=== PATIENT | male | born 1955 | race Caucasian/White ===

== ENCOUNTER 2016-12-14 08:51 | Inpatient (IN) | payer BC ==
[2016-12-14] VITALS (13 sets, daily range): BP systolic 94–160; BP diastolic 52–80; PULSE 65–120; RESP 15–24; TEMP 98–98.1; O2SAT 97–100
[~2016-12-14] VITALS: Ht 177.8 cm; Wt 99.8 kg
[2016-12-14] MEDS ORDERED: SODIUM CHLOR 0.9% 1000 ML INJ 1,000 ML IV ONE ×3 (09:00→09:30)
[2016-12-14] MEDS ORDERED: SODIUM CHLORIDE 0.9% FLUSH 5 ML FLUSH IVF PRN (09:00)
[2016-12-14 09:01] LABS: MEAN CORPUSCULAR HGB CONC 29.5 % (32.0-36.0)
--- NOTE | 2016-12-14 09:14 | PD ---
HPI Chief Complaint: Diabetic Time Seen by Provider: 08:57 Travel History International Travel<30 days: No Contact w/Intl Traveler<30days: No Traveled to known affect area: No History of Present Illness HPI 61-year-old male with history of insulin dependent diabetes, brought in by ambulance for evaluation of nausea, vomiting, generalized weakness. The patient has been vomiting for the last 24 hours. Occasionally he notices some blood in his emesis. No diarrhea. No abdominal pain. No chest pain or dyspnea. No fevers or chills. He states that he has been compliant with his insulin. PFSH Past Medical History Hx Anticoagulant Therapy: Yes (81 mg asa) Diabetes: Yes Patient Takes Glucophage: No Diminished Hearing: Yes Hypertension: Yes Tetanus Vaccination: > 5 Years Influenza Vaccination: Yes ?: Not Past Surgical History Cholecystectomy: Yes Other Surgery: Yes (PERACARDECTOMY, INSULIN PUMP PLACEMENT) Social History Alcohol Use: Yes (daily- 1 to 2 glasses of berr/wine) Tobacco Use: No Substance Use: No Allergies-Medications (Allergen,Severity, Reaction): Coded Allergies: No Known Allergies (Unverified , 12/14/16) Review of Systems Except as stated in HPI: all other systems reviewed are Neg Physical Exam Narrative GENERAL: Well-developed, well-nourished, awake, alert, no acute distress. SKIN: Warm and dry. HEAD: Atraumatic. Normocephalic. EYES: Pupils equal and round. No scleral icterus. No injection or drainage. ENT: Mucous membranes pink and dry. NECK: Trachea midline. No JVD. No nuchal rigidity. CARDIOVASCULAR: Regular rate and rhythm. RESPIRATORY: No accessory muscle use. Clear to auscultation. Breath sounds equal bilaterally. GASTROINTESTINAL: Abdomen soft, non-tender, nondistended. MUSCULOSKELETAL: No obvious deformities. No clubbing. No cyanosis. No edema. NEUROLOGICAL: Awake and alert. No obvious cranial nerve deficits. Motor grossly within normal limits. Normal speech. PSYCHIATRIC: Appropriate mood and affect; insight and judgment normal. Data Data Last Documented VS Vital Signs Date Time Temp Pulse Resp B/P Pulse Ox O2 Delivery O2 Flow Rate FiO2 12/14/16 10:00 72 18 136/62 99 Room Air 12/14/16 08:57 98.0 Orders Electrocardiogram (12/14/16 09:00) Complete Blood Count With Diff (12/14/16 09:00) Comprehensive Metabolic Panel (12/14/16 09:00) Magnesium (Mg) (12/14/16 09:00) Phosphorus (Po4) (12/14/16 09:00) Beta Hydroxybutyrate (Acetone) (12/14/16 09:00) Urinalysis - C+S If Indicated (12/14/16 09:00) Chest, Single Ap (12/14/16 09:00) Blood Gas Venous (Vbg) (12/14/16 09:00) Ecg Monitoring (12/14/16 09:00) Iv Access Insert/Monitor (12/14/16 09:00) Oximetry (12/14/16 09:00) NPO (12/14/16 09:00) Sodium Chlor 0.9% 1000 Ml Inj (Ns 1000 M (12/14/16 09:00) Sodium Chlor 0.9% 1000 Ml Inj (Ns 1000 M (12/14/16 09:30) Sodium Chloride 0.9% Flush (Ns Flush) (12/14/16 09:00) Influenzae A/B Antigen (12/14/16 09:00) Ckmb (Isoenzyme) Profile (12/14/16 09:12) Troponin I (12/14/16 09:12) Ondansetron Inj (Zofran Inj) (12/14/16 09:15) Sodium Chlor 0.9% 1000 Ml Inj (Ns 1000 M (12/14/16 09:30) CKMB (12/14/16 09:08) CKMB% (12/14/16 09:08) Strip Cutting Machine Operator / Telemetry (12/14/16 10:31) ^ Insert Iv (12/14/16 10:31) Diet Npo (12/14/16 Lunch) Sodium Chlor 0.9% 1000 Ml Inj (Ns 1000 M (12/14/16 10:31) Dext 5%-Nacl 0.9% 1000 Ml Inj (D5w-Ns 10 (12/14/16 10:31) Insulin Human Regular Inj (Novolin R Inj (12/14/16 10:45) Insulin Regular (Iv Infusion) (Novolin R (12/14/16 10:45) Potassium Chlor 40 Meq Premix (Kcl 40 Me (12/14/16 10:45) Potassium Chlor 40 Meq Premix (Kcl 40 Me (12/14/16 10:45) Potassium Chlor 20 Meq Premix (Kcl 20 Me (12/14/16 10:45) Potassium Chlor 20 Meq Premix (Kcl 20 Me (12/14/16 10:45) Potassium Chlor 20 Meq Premix (Kcl 20 Me (12/14/16 10:45) Potassium Chlor 20 Meq Premix (Kcl 20 Me (12/14/16 10:45) Potassium Chlor 20 Meq Premix (Kcl 20 Me (12/14/16 10:45) Potassium Chlor 20 Meq Premix (Kcl 20 Me (12/14/16 10:45) Sodium Bicarbonate 8.4% Inj (Sodium Bica (12/14/16 10:45) Sodium Bicarbonate 8.4% Inj (Sodium Bica (12/14/16 10:45) Sodium Phosphate Inj (Sodium Phosphate I (12/14/16 10:45) Hemoglobin (Hgb) A1c (12/14/16 10:31) Basic Metabolic Panel (Bmp) (12/14/16 15:31) Basic Metabolic Panel (Bmp) (12/14/16 21:31) Basic Metabolic Panel (Bmp) (12/15/16 03:31) Basic Metabolic Panel (Bmp) (12/15/16 09:31) Magnesium (Mg) (12/14/16 15:31) Magnesium (Mg) (12/14/16 21:31) Magnesium (Mg) (12/15/16 03:31) Magnesium (Mg) (12/15/16 09:31) Phosphorus (Po4) (12/14/16 15:31) Phosphorus (Po4) (12/14/16 21:31) Phosphorus (Po4) (12/15/16 03:31) Phosphorus (Po4) (12/15/16 09:31) Beta Hydroxybutyrate (Acetone) (12/14/16 21:31) Beta Hydroxybutyrate (Acetone) (12/15/16 09:31) Labs Laboratory Tests Test 12/14/16 12/14/16 12/14/16 12/14/16 09:00 09:05 09:08 10:02 Blood Gas Puncture Site DRAWN BY YULY Blood Gas Patient Temperature 98.6 Venous Blood pH 6.93 Venous Blood Partial Pressure 32 mmHg CO2 Venous Blood Partial Pressure 35 mmHg O2 Venous Blood HCO3 6 mmol/L Venous Blood Oxygen Saturation 49 % Venous Blood Oxygen Content 10.0 Vol % Venous Blood Base Excess -23.5 mmol/L Oxygen Delivery Device ROOM AIR Blood Gas Inspired Oxygen 21 % White Blood Count 20.4 TH/MM3 Red Blood Count 4.46 MIL/MM3 Hemoglobin 13.9 GM/DL Hematocrit 47.3 % Mean Corpuscular Volume 106.0 FL Mean Corpuscular Hemoglobin 31.2 PG Mean Corpuscular Hemoglobin 29.5 % Concent Red Cell Distribution Width 15.1 % Platelet Count 305 TH/MM3 Mean Platelet Volume 10.1 FL Neutrophils (%) (Auto) % Lymphocytes (%) (Auto) % Monocytes (%) (Auto) % Eosinophils (%) (Auto) % Basophils (%) (Auto) % Neutrophils # (Auto) TH/MM3 Lymphocytes # (Auto) TH/MM3 Monocytes # (Auto) TH/MM3 Eosinophils # (Auto) TH/MM3 Basophils # (Auto) TH/MM3 CBC Comment AUTO DIFF Sodium Level 132 MEQ/L Potassium Level 5.6 MEQ/L Chloride Level 90 MEQ/L Carbon Dioxide Level 6.8 MEQ/L Anion Gap 35 MEQ/L Blood Urea Nitrogen 57 MG/DL Creatinine 3.13 MG/DL Estimat Glomerular Filtration 20 ML/MIN Rate Random Glucose 983 MG/DL Calcium Level 8.8 MG/DL Phosphorus Level 8.6 MG/DL Magnesium Level 3.6 MG/DL Total Bilirubin 0.9 MG/DL Aspartate Amino Transf 19 U/L (AST/SGOT) Alanine Aminotransferase 21 U/L (ALT/SGPT) Alkaline Phosphatase 139 U/L Total Creatine Kinase 301 U/L Creatine Kinase MB 18.0 NG/ML Troponin I 0.11 NG/ML Total Protein 7.3 GM/DL Albumin 3.9 GM/DL B-Hydroxybutyrate 14.19 MMOL/L Urine Color LIGHT-YELLOW Urine Turbidity CLEAR Urine pH 5.0 Urine Specific [place] 1.018 Urine Protein TRACE mg/dL Urine Glucose (UA) 1000 mg/dL Urine Ketones 80 mg/dL Urine Occult Blood SMALL Urine Nitrite NEG Urine Bilirubin NEG Urine Urobilinogen LESS THAN 2.0 MG/DL Urine Leukocyte Esterase NEG Urine RBC LESS THAN 1 /hpf Urine WBC 7 /hpf Urine Squamous Epithelial <1 /hpf Cells Urine Mucus FEW /lpf Microscopic Urinalysis Comment CULT NOT INDICATED MDM Medical Decision Making Medical Screen Exam Complete: Yes Emergency Medical Condition: Yes Interpretation(s) EKG: Sinus, rate 86, normal axis, normal intervals, no acute ischemic abnormality. Differential Diagnosis DKA, dehydration, electrolyte abnormality, ACS, pneumonia, influenza Narrative Course Initial vital signs show heart rate 86, blood pressure 160/70, pulse ox 100% on room air, axillary temp of 98F. Venous pH is 6.9. CBC is remarkable for WBC 20.4 CMP shows sodium 132, potassium 5.6, chloride 90, bicarbonate 6.8, anion gap 35 , BUN 57, creatinine 3.13, random glucose 93. Troponin is 0.11. Beta hydroxybutyrate is 14.2. UA shows 1000 glucose, 80 ketones, not suggestive of UTI. Chest x-ray shows no pneumonia. Patient was given 3 L of IV fluids once IV was established. After chemistry was performed, DKA protocol initiated and the patient was given an insulin bolus and started on insulin drip. The patient is likely in DKA secondary to dehydration from vomiting over the last 24 hours. He reports compliance with insulin. Case discussed with food services director Dr. Melchor who will admit the patient to his service. The patient was made aware of all findings and plan for admission. Critical Care Narrative Aggregate critical care time was 35 minutes. Time to perform other separately billable procedures was not included in the critical care time. My time did not include minutes spent treating any other patients simultaneously or on activities that did not directly contribute to the patient's treatment. The services I provided to this patient were to treat and/or prevent clinically significant deterioration that could result in: , permanent disability, worsening clinical condition, diabetic coma I provided critical care services requiring my management, as noted below: Chart data review, documentation time, medication orders and management, vital sign assessments/reviewing monitor data, ordering and reviewing lab tests, ordering and interpreting/reviewing x-rays and diagnostic studies, care of the patient and discussion of the patient with the admitting physicians. Diagnosis Primary Impression: Diabetic ketoacidosis Qualified Code: E10.10 - Diabetic ketoacidosis without coma associated with type 1 diabetes mellitus Additional Impression: Acute renal insufficiency Admitting Information Admitting Physician Requests: Admit Antony St MD Dec 14, 2016 09:14
[2016-12-14 09:15] LABS: BLOOD GAS VENOUS BASE EXCESS -23.5 mmol/L (-2-2); BLOOD GAS VENOUS HCO3 6 mmol/L (22-26); BLOOD GAS VENOUS O2 HGB SAT 49 % (70-76); BLOOD GAS VENOUS PCO2 32 mmHg (44-48); BLOOD GAS VENOUS PO2 35 mmHg (35-40); BLOOD GAS VENOUS pH 6.93 (7.360-7.400); CRITICAL VALUE YES; FIO2 21 %; OXYGEN DEVICE ROOM AIR; TEMP CORR TO 98.6
[2016-12-14] MEDS ORDERED: ONDANSETRON HCL 4 MG/2 ML VIAL IV PUSH ONE (09:15)
[2016-12-14 09:16] LABS: STAT YES
[2016-12-14 09:38] LABS: HEMATOCRIT 47.3 % (39.0-51.0); MEAN CORPUSCULAR HEMOGLOBIN 31.2 PG (27.0-34.0); PLATELET COUNT 305 TH/MM3 (150-450); RED BLOOD COUNT 4.46 MIL/MM3 (4.50-5.90); RED CELL DISTRIBUTION WIDTH 15.1 % (11.6-17.2); WHITE BLOOD COUNT 20.4 TH/MM3 (4.0-11.0)
[2016-12-14 09:41] LABS: HEMO FLAGS AUTO DIFF
[2016-12-14 09:58] LABS: CREATINE KINASE 301 U/L (39-308)
[2016-12-14 10:07] LABS: ALKALINE PHOSPHATASE 139 U/L (45-117); ALT (GPT) 21 U/L (12-78); ANION GAP 35 MEQ/L (5-15); AST (GOT) 19 U/L (15-37); BETA-HYDROXYBUTYRATE 14.19 MMOL/L (0.00-0.39); BICARBONATE 6.8 MEQ/L (21.0-32.0); BLOOD UREA NITROGEN 57 MG/DL (7-18); CHLORIDE 90 MEQ/L (98-107); GLOMERULAR FILTRATION RATE 20 ML/MIN (>89); MAGNESIUM 3.6 MG/DL (1.5-2.5); POTASSIUM 5.6 MEQ/L (3.5-5.1); SODIUM (NA) 132 MEQ/L (136-145); TOTAL BILIRUBIN ADULT 0.9 MG/DL (0.2-1.0)
--- NOTE | 2016-12-14 10:16 | RADRPT ---
EXAM DATE/TIME: 12/14/2016 09:40 [facility] COMPARISON: No previous studies available for comparison. INDICATIONS : Shortness of breath and fever symptoms. MEDICAL HISTORY : Diabetes mellitus type II. SURGICAL HISTORY : CABG. ENCOUNTER: Initial ACUITY: 4 - 6 days PAIN SCORE: 0/10 LOCATION: Bilateral chest FINDINGS: Median sternotomy wires are noted status post cardiac surgery. The heart is enlarged. The pulmonary vascularity pattern is normal. The lungs are clear. CONCLUSION: 1. Cardiomegaly. 2. No acute focal pulmonary infiltrate or pulmonary vascular congestion. Meliton Clemens MD on December 14, 2016 at 10:11 Board Certified Radiologist. This report was verified electronically.
[2016-12-14 10:20] LABS: BLOOD, URINE SMALL (NEG); COMMENT (UR) CULT NOT INDICATED; CULTURE IF INDICATED CULT NOT INDICATED; GLUCOSE,URINE 1000 mg/dL (NEG); KETONE, URINE 80 mg/dL (NEG); MUCUS URINE FEW /lpf (OCC); NITRITE,URINE NEG (NEG); SQUAMOUS EPITHELIAL CELL URINE <1 /hpf (0-5); URINE COLOR LIGHT-YELLOW (YELLW/STRAW)
[2016-12-14] MEDS ORDERED: SODIUM CHLOR 0.9% 1000 ML INJ 1,000 ML IV SCH (10:31)
[2016-12-14] MEDS ORDERED: DEXT 5%-NACL 0.9% 1000 ML INJ 1,000 ML IV SCH (10:31)
[2016-12-14 10:36] LABS: BANDS 10 % (0-6); METAMYELOCYTES 1 % (0-1); MYELOCYTES 1 % (0-0); NEUTROPHIL # MANUAL DIFF 17.3 TH/MM3 (1.8-7.7); PLATELET ESTIMATE SMEAR NORMAL (NORMAL); PLATELET MORPHOLOGY NORMAL (NORMAL); POLYS (SEG NEUTROPHILS) 73 % (16-70); SCAN/DIFF FINAL DIFF MANUAL; WBC DIFF SAMPLE 100
[2016-12-14] MEDS ORDERED: POTASSIUM CHLOR 20 MEQ PREMIX 100 ML IV PRN ×12 (10:45→11:45)
[2016-12-14] MEDS ORDERED: INSULIN REGULAR (IV INFUSION) 100 UNITS in SODIUM CHLORIDE 0.9% INJ 99 ML IV SCH (10:45)
[2016-12-14] MEDS ORDERED: INSULIN HUMAN REGULAR 1,000 UNITS/10 ML VIAL IV PUSH ONE (10:45)
[2016-12-14] MEDS ORDERED: SODIUM BICARBONATE 8.4% SOLN 50 MEQ/50 ML VIAL IV PRN ×4 (10:45→11:45)
[2016-12-14] MEDS ORDERED: POTASSIUM CHLOR 40 MEQ PREMIX 100 ML IV PRN ×4 (10:45→11:45)
[2016-12-14] MEDS ORDERED: SODIUM PHOSPHATE INJ 15 MMOL in SODIUM CHLORIDE 0.9% INJ 100 ML IV PRN ×2 (10:45→11:45)
[2016-12-14] MEDS ORDERED: MIDAZOLAM HCL 2 MG/2 ML VIAL IV PRN (11:45)
[2016-12-14] MEDS ORDERED: MORPHINE SULFATE 4 MG/ML INJ IV PRN (11:45)
[2016-12-14] MEDS ORDERED: RESP: ALBUTEROL 2.5 MG/IPRATROPIUM 0.5 MG NEB (PRN) INH (11:45)
[2016-12-14] MEDS ORDERED: ACETAMINOPHEN 325 MG TAB PO PRN (11:45)
[2016-12-14] MEDS ORDERED: MISCELLANEOUS NURSING INFORMATION XX SCH ×2 (11:45)
[2016-12-14] MEDS ORDERED: CHLORHEXIDINE GLUCONATE 2 % 1 PACK (2 CLOTHS) TOP PRN ×2 (11:45)
[2016-12-14] MEDS ORDERED: SODIUM CHLORIDE 0.9% FLUSH 5 ML FLUSH IV FLUSH PRN (11:45)
[2016-12-14] MEDS: SODIUM CHLOR 0.9% 1000 ML INJ 1,000 ML IV SCH ×4 (12:03→21:33)
[2016-12-14] MEDS ORDERED: ENOXAPARIN SODIUM 40 MG/0.4 ML SYRINGE SQ SCH (13:00)
[2016-12-14 14:25] LABS: BICARBONATE 6.6 MEQ/L (21.0-32.0); POTASSIUM 3.6 MEQ/L (3.5-5.1)
[2016-12-14 14:42] LABS: CALCIUM-PROTEIN CORRECTED 8.1 MG/DL (8.5-10.1)
[2016-12-14] MEDS ORDERED: METOPROLOL TARTRATE 25 MG TAB PO ONE (15:30)
[2016-12-14] MEDS ORDERED: ASPIRIN 81 MG CHEW TAB CHEW ONE (15:30)
[2016-12-14 16:13] LABS: HEMATOCRIT 42.3 % (39.0-51.0); MEAN CELL VOLUME 98.7 FL (80.0-100.0); MEAN CORPUSCULAR HEMOGLOBIN 31.1 PG (27.0-34.0); MEAN CORPUSCULAR HGB CONC 31.5 % (32.0-36.0); PLATELET COUNT 181 TH/MM3 (150-450); RED BLOOD COUNT 4.28 MIL/MM3 (4.50-5.90); RED CELL DISTRIBUTION WIDTH 14.3 % (11.6-17.2); REVIEW FLAG FINAL
[2016-12-14 16:30] LABS: BICARBONATE 9.7 MEQ/L (21.0-32.0); MAGNESIUM 3.1 MG/DL (1.5-2.5); POTASSIUM 3.8 MEQ/L (3.5-5.1)
[2016-12-14 16:32] LABS: APTT (PATIENT) 21.5 SEC (24.3-30.1); INTERNATIONAL NORMALIZED RATIO 0.9 RATIO
[2016-12-14] MEDS: HEPARIN-D5W INJ 250 ML IV SCH (17:05)
[2016-12-14] MEDS: PRAVASTATIN SOD 80 MG TAB PO SCH (17:10)
--- NOTE | 2016-12-14 17:10 | EC ---
Study Study Date:12/14/2016 STUDY CONCLUSIONS SUMMARY - Left ventricle: The cavity size was normal. Wall thickness was normal. Systolic function was normal. The estimated ejection fraction was in the range of 50% to 55%. Wall motion was normal; there were no regional wall motion abnormalities. Doppler parameters are consistent with abnormal left ventricular relaxation (grade 1 diastolic dysfunction). - Aortic valve: Valve area: 2.3cm^2(VTI). Valve area: 1.97cm^2 (Vmax). If LV function is below 40, please consider prescribing an ACEI or ARB or document rationale for non-use. PROCEDURE DATA STUDY STATUS: Elective. Procedure: Transthoracic echocardiography. Image quality was good. Scanning was performed from the parasternal, apical, and subcostal acoustic windows. Study completion: The patient tolerated the procedure well. Transthoracic echocardiography. M-mode, complete 2D, complete spectral Doppler, and color Doppler. Height: Height: 70in. Weight: Weight: 219.5lb. Body mass index: BMI: 31.6kg/m^2. Body surface area: BSA: 2.17m^2. Patient status: Inpatient. CARDIAC ANATOMY LEFT VENTRICLE: The cavity size was normal. Wall thickness was normal. Systolic function was normal. The estimated ejection fraction was in the range of 50% to 55%. Wall motion was normal; there were no regional wall motion abnormalities. Doppler parameters are consistent with abnormal left ventricular relaxation (grade 1 diastolic dysfunction). AORTIC VALVE: Trileaflet; normal thickness leaflets. Doppler: Transvalvular velocity was within the normal range. There was no stenosis. No regurgitation. Valve area: 2.3cm^2(VTI). Indexed valve area: 1.06cm^2/m^2 (VTI). Valve area: 1.97cm^2 (Vmax). Indexed valve area: 0.91cm^2/m^2 (Vmax). Mean gradient: 4mm Hg (S). AORTA: Aortic root: The aortic root was normal in size. MITRAL VALVE: Structurally normal valve. Doppler: Transvalvular velocity was within the normal range. There was no evidence for stenosis. Trace regurgitation. LEFT ATRIUM: The atrium was normal in size. RIGHT VENTRICLE: The cavity size was normal. Wall thickness was normal. PULMONIC VALVE: Doppler: Transvalvular velocity was within the normal range. There was no evidence for stenosis. No regurgitation. TRICUSPID VALVE: Structurally normal valve. Doppler: Transvalvular velocity was within the normal range. Trace regurgitation. PULMONARY ARTERY: The main pulmonary artery was normal-sized. Systolic pressure was within the normal range. RIGHT ATRIUM: The atrium was normal in size. PERICARDIUM: There was no pericardial effusion. SYSTEMIC VEINS: Inferior vena cava: The vessel was normal in size. Patient weight: 219.5lb _Ejection fraction:_ 65-75% _Fractional shortening:_ 32% up to 5Kg 5-11.5Kg 11.6-22.9Kg 23-45Kg 45-57Kg Aortic Root 7-13 <17 13-22 17-27 17-27 LA diam 6-13 <23 24-38 33-47 37-40 RVID 10-17 7-15 7-15 7-18 8-17 LVIDd 12-22 <32 24-38 33-47 37-40 LVPW 2-4 3-6 5-7 6-8 7-8 IVS 2-4 3-6 5-7 6-8 7-8 BASIC MEASUREMENTS ADULT NORMAL Left ventricle LV internal dimension, ED, chordal 48.5 mm 43-52 level, PLAX LV internal dimension, ES, chordal 37.6 mm 23-38 level, PLAX Fractional shortening, chordal level, *22 % >29 PLAX LV posterior wall thickness, ED 9.65 mm IVS/LVPW ratio, ED 1 <1.3 Ventricular septum Septal thickness, ED 9.65 mm Aortic valve Leaflet separation 22 mm 15-26 Aorta Root diameter, ED 28 mm Left atrium Anterior-posterior dimension 36 mm Anterior-posterior dimension index 1.66 cm/m^2 <2.2 BASIC MEASUREMENTS ADULT NORMAL Aortic valve Leaflet separation 22 mm 15-26 DOPPLER MEASUREMENTS ADULT NORMAL Aortic valve Peak velocity, S 125 cm/s Mean velocity, S 91.3 cm/s VTI, S 15.2 cm Mean gradient, S 4 mm Hg Valve area, VTI 2.3 cm^2 Valve area index, VTI 1.06 cm^2/m^2 Valve area, Vmax 1.97 cm^2 Valve area index, Vmax 0.91 cm^2/m^2 Mitral valve Peak E-wave velocity 61.2 cm/s Peak A-wave velocity 95.8 cm/s Deceleration time 190 ms 150-230 Peak E/A ratio 0.6 Pulmonic valve Peak velocity, S 95.5 cm/s LEGEND: Mean values are shown as u=mean value. Asterisk (*) weaver values outside specified normal range. Prepared and signed by Kofi Howard [id number]
--- NOTE | 2016-12-14 17:29 | HHI.HP ---
HPI Service Critical Care Medicine Primary Care Physician Non-Staff Admission Diagnosis DKA Diagnosis: Travel History International Travel<30 Days: No Contact w/Intl Traveler <30 Da: No Traveled to Known Affected Are: No History of Present Illness 61-year-old male with history of insulin dependent diabetes, brought in by ambulance for evaluation of nausea, vomiting, generalized weakness. The patient has been vomiting for the last 24 hours. Occasionally he notices some blood in his emesis. No diarrhea. No abdominal pain. He has experienced some chest pressure and burning more likely due to digestion and GERD. This has improved with Pepto-Bismol Review of Systems Constitutional: DENIES: Diaphoretic episodes, Fatigue, Fever, Weight gain, Weight loss, Chills, Dizziness, Change in appetite, Night Sweats Endocrine: DENIES: Heat/cold intolerance, Polydipsia, Polyuria, Polyphagia Eyes: DENIES: Blurred vision, Diplopia, Eye inflammation, Eye pain, Vision loss , Photosensitivity, Double Vision Ears, nose, mouth, throat: DENIES: Tinnitus, Hearing loss, Vertigo, Nasal discharge, Oral lesions, Throat pain, Hoarseness, Ear Pain, Running Nose, Epistaxis, Sinus Pain, Toothache, Odynophagia Respiratory: DENIES: Apneas, Cough, Snoring, Wheezing, Hemoptysis, Sputum production, Shortness of breath Cardiovascular: DENIES: Chest pain, Palpitations, Syncope, Dyspnea on Exertion , PND, Lower Extremity Edema, Orthopnea, Claudication Gastrointestinal: COMPLAINS OF: Abdominal pain, Nausea, Vomiting, DENIES: Black stools, Bloody stools, Constipation, Diarrhea, Difficulty Swallowing, Anorexia Genitourinary: DENIES: Sexual dysfunction, Urinary frequency, Urinary incontinence, Urgency, Hematuria, Dysuria, Nocturia, Penile Discharge, Testicular Pain, Testicular Swelling Musculoskeletal: DENIES: Joint pain, Muscle aches, Stiffness, Joint Swelling, Back pain, Neck pain Integumentary: DENIES: Abnormal pigmentation, Nail changes, Pruritus, Rash Hematologic/lymphatic: DENIES: Bruising, Lymphadenopathy Immunologic/allergic: DENIES: Eczema, Urticaria Neurologic: DENIES: Abnormal gait, Headache, Localized weakness, Paresthesias, Seizures, Speech Problems, Tremor, Poor Balance Psychiatric: DENIES: Anxiety, Confusion, Mood changes, Depression, Hallucinations, Agitation, Suicidal Ideation, Homicidal Ideation, Delusions Past Family Social History Allergies: Coded Allergies: No Known Allergies (Unverified , 12/14/16) Past Medical History History PFSH Past Medical History Hx Anticoagulant Therapy: Yes (81 mg asa) Diabetes: Yes Hypertension: Yes Past Surgical History Cholecystectomy: Yes Other Surgery: Yes (PERACARDECTOMY, INSULIN PUMP PLACEMENT) Reported Medications Reported Meds & Active Scripts Active Active Prescriptions or Reported Medications Unobtainable Active Ordered Medications Current Medications Medications (Trade) Dose Ordered Sig/Caprice Route PRN Reason Start Time Stop Time Status Last Admin Dose Admin Sodium Chloride 1,000 ml @ 250 mls/hr Q4H IV 12/14/16 11:32 12/14/16 21:33 Dextrose/Sodium Chloride (D5W-NS 1000 ml Inj) 1,000 ml @ 200 mls/hr Q5H IV 12/14/16 11:32 12/15/16 04:14 Sodium Bicarbonate (Sodium Bicarbonate 8.4% Inj) 100 meq UNSCH PRN IV SEE LABEL COMMENTS 12/14/16 11:45 Sodium Bicarbonate (Sodium Bicarbonate 8.4% Inj) 50 meq UNSCH PRN IV SEE LABEL COMMENTS 12/14/16 11:45 Chlorhexidine Gluconate (Chlorhexidine 2% Cloth) 3 pack Taper DAILY@04 TOP 12/15/16 04:00 12/11/17 03:59 12/15/16 04:00 Chlorhexidine Gluconate (Chlorhexidine 2% Cloth) 3 pack UNSCH PRN TOP HYGIENIC CARE 12/14/16 11:45 IV Flush (NS Flush) 2 ml UNSCH PRN IV FLUSH FLUSH AFTER USING IV ACCESS 12/14/16 11:45 IV Flush (NS Flush) 2 ml BID IV FLUSH 12/14/16 21:00 12/15/16 08:35 Acetaminophen (Tylenol) 650 mg Q6H PRN PO PAIN 1-5 AND/OR FEVER >101F 12/14/16 11:45 Morphine Sulfate (Morphine Inj) 2 mg Q2H PRN IV PAIN SCALE 6 TO 10 12/14/16 11:45 Pantoprazole Sodium (Protonix Inj) 40 mg DAILY IV 12/15/16 09:00 12/15/16 08:35 Midazolam HCl (Versed Inj) 2 mg Q1H PRN IV SEDATION 12/14/16 11:45 Miscellaneous Information 1 Q361D XX 12/14/16 11:45 Heparin Sodium (Porcine) (Heparin Inj) 5,000 units UNSCH PRN IV APTT LESS THAN 25 12/14/16 21:15 Heparin Sodium (Porcine) 2500 units 2,500 units UNSCH PRN IV APTT 25 TO 39 12/14/16 21:15 Heparin Sodium/ Dextrose (Heparin-D5W Inj) 250 ml @ 0 mls/hr TITRATE IV 12/14/16 15:15 12/15/16 10:21 Pravastatin Sodium (Pravachol) 80 mg DAILY PO 12/14/16 15:30 12/15/16 08:35 Metoprolol Tartrate (Lopressor) 12.5 mg Q12HR PO 12/14/16 21:00 12/15/16 08:35 Insulin Detemir (Levemir Inj) 15 units DAILY SQ 12/15/16 09:00 12/15/16 09:00 Dextrose (D50w (Vial) Inj) 25 ml UNSCH PRN IV PUSH HYPOGLYCEMIA-SEE COMMENTS 12/15/16 08:45 Glucagon 1 mg 1 mg UNSCH PRN OTHER HYPOGLYCEMIA-SEE COMMENTS 12/15/16 08:45 Potassium Phosphate 15 mmol/ Sodium Chloride 155 ml @ 38.75 mls/ hr ONCE ONCE IV 12/15/16 11:00 12/15/16 14:59 Calcium Gluconate/ Sodium Chloride (Calcium Gluconate Inj/NS Inj) 120 ml @ 120 mls/hr ONCE ONCE IV 12/15/16 11:00 12/15/16 11:59 Family History Noncontributory Social History Negative 3 Physical Exam Vital Signs Vital Signs Date Time Temp Pulse Resp B/P Pulse Ox O2 Delivery O2 Flow Rate FiO2 12/14/16 14:14 103 16 120/80 98 Room Air 12/14/16 13:55 105 15 100/52 97 12/14/16 13:00 120 16 98/58 98 Room Air 12/14/16 12:20 102 15 128/56 99 Room Air 12/14/16 11:23 78 18 132/55 98 Room Air 12/14/16 10:00 72 18 136/62 99 Room Air 12/14/16 09:22 100 Room Air 12/14/16 09:03 20 99 Room Air 12/14/16 08:57 98.0 86 24 160/70 100 Physical Exam GENERAL: Well-nourished, well-developed patient. SKIN: Warm and dry. HEAD: Normocephalic. EYES: No scleral icterus. No injection or drainage. NECK: Supple, trachea midline. No JVD or lymphadenopathy. CARDIOVASCULAR: Regular rate and rhythm without murmurs, gallops, or rubs. RESPIRATORY: Breath sounds equal bilaterally. No accessory muscle use. GASTROINTESTINAL: Abdomen soft, non-tender, nondistended. MUSCULOSKELETAL: No cyanosis, or edema. BACK: Nontender without obvious deformity. No CVA tenderness. Laboratory Laboratory Tests Test 12/14/16 12/14/16 12/14/16 12/14/16 09:00 09:05 09:08 10:02 Blood Gas Puncture Site DRAWN BY RN Blood Gas Patient Temperature 98.6 Venous Blood pH 6.93 Venous Blood Partial Pressure 32 CO2 Venous Blood Partial Pressure 35 O2 Venous Blood HCO3 6 Venous Blood Oxygen Saturation 49 Venous Blood Oxygen Content 10.0 Venous Blood Base Excess -23.5 Oxygen Delivery Device ROOM AIR Blood Gas Inspired Oxygen 21 White Blood Count 20.4 Red Blood Count 4.46 Hemoglobin 13.9 Hematocrit 47.3 Mean Corpuscular Volume 106.0 Mean Corpuscular Hemoglobin 31.2 Mean Corpuscular Hemoglobin 29.5 Concent Red Cell Distribution Width 15.1 Platelet Count 305 Mean Platelet Volume 10.1 Neutrophils (%) (Auto) Lymphocytes (%) (Auto) Monocytes (%) (Auto) Eosinophils (%) (Auto) Basophils (%) (Auto) Neutrophils # (Auto) Lymphocytes # (Auto) Monocytes # (Auto) Eosinophils # (Auto) Basophils # (Auto) CBC Comment AUTO DIFF Differential Total Cells 100 Counted Neutrophils % (Manual) 73 Band Neutrophils % 10 Lymphocytes % 6 Monocytes % 9 Neutrophils # (Manual) 17.3 Metamyelocytes 1 Myelocytes 1 Differential Comment FINAL DIFF MANUAL Platelet Estimate NORMAL Platelet Morphology Comment NORMAL Sodium Level 132 Potassium Level 5.6 Chloride Level 90 Carbon Dioxide Level 6.8 Anion Gap 35 Blood Urea Nitrogen 57 Creatinine 3.13 Estimat Glomerular Filtration 20 Rate Random Glucose 983 Calcium Level 8.8 Phosphorus Level 8.6 Magnesium Level 3.6 Total Bilirubin 0.9 Aspartate Amino Transf 19 (AST/SGOT) Alanine Aminotransferase 21 (ALT/SGPT) Alkaline Phosphatase 139 Total Creatine Kinase 301 Creatine Kinase MB 18.0 Troponin I 0.11 Total Protein 7.3 Albumin 3.9 B-Hydroxybutyrate 14.19 Urine Color LIGHT-YELLOW Urine Turbidity CLEAR Urine pH 5.0 Urine Specific [place] 1.018 Urine Protein TRACE Urine Glucose (UA) 1000 Urine Ketones 80 Urine Occult Blood SMALL Urine Nitrite NEG Urine Bilirubin NEG Urine Urobilinogen LESS THAN 2.0 Urine Leukocyte Esterase NEG Urine RBC LESS THAN 1 Urine WBC 7 Urine Squamous Epithelial <1 Cells Urine Mucus FEW Microscopic Urinalysis Comment CULT NOT INDICATED Test 12/14/16 12/14/16 12/14/16 12/14/16 13:30 13:38 14:00 15:33 Sodium Level 144 146 Potassium Level 3.6 3.8 Chloride Level 107 109 Carbon Dioxide Level 6.6 9.7 Anion Gap 30 27 Blood Urea Nitrogen 56 55 Creatinine 2.41 2.38 Estimat Glomerular Filtration 28 28 Rate Random Glucose 701 617 Calcium Level 7.3 7.7 Protein Corrected Calcium 8.1 Phosphorus Level 3.5 3.0 Magnesium Level 3.0 3.1 Total Protein 5.6 Troponin I 0.16 Nasal Screen MRSA (PCR) NEGATIVE Test 12/14/16 15:59 White Blood Count 16.0 Red Blood Count 4.28 Hemoglobin 13.3 Hematocrit 42.3 Mean Corpuscular Volume 98.7 Mean Corpuscular Hemoglobin 31.1 Mean Corpuscular Hemoglobin 31.5 Concent Red Cell Distribution Width 14.3 Platelet Count 181 Mean Platelet Volume 9.9 Prothrombin Time 10.0 Prothromb Time International 0.9 Ratio Activated Partial 21.5 Thromboplast Time Date/Time Procedure Status Source Growth 12/14/16 09:10 Influenza Types A,B Antigen ([facility]) - Final Complete Nasal Washing NEGATIVE FOR FLU A AND B ANTIGEN.... Result Diagram: 12/14/16 1559 12/14/16 1533 Assessment and Plan Problem List: (1) Diabetic ketoacidosis ICD Code: E13.10 Status: Acute (2) Acute renal insufficiency ICD Code: N28.9 Status: Acute Assessment and Plan DKA - Insulin drip protocol - Monitor and replace electrolytes - Transition to subcutaneous insulin one anion gap closes Atypical chest pain - Cardiology consult - Follow-up trend of troponins - Serial EKGs - Metoprolol aspirin pravastatin and heparin drip New-onset of A. fib - Heparin drip - Metoprolol for rate control - In and out of sinus rhythm GERD - IV Pepcid Acute kidney injury - Due to dehydration - Aggressive IV fluids resuscitation - Monitor is and os - Electrolytes replacement DVT GI prophylaxis - Pepcid and heparin drip Critical Care: The total critical care time was 45 minutes. Time to perform other separately billable procedures was not included in the critical care time. Problem Qualifiers (1) Diabetic ketoacidosis: Qualified Code: E10.10 - Diabetic ketoacidosis without coma associated with type 1 diabetes mellitus Yuri Melchor MD Dec 14, 2016 17:29
--- NOTE | 2016-12-14 19:32 | EKG ---
Date Performed: 12/14/2016 Time Performed: 09:17:25 PTAGE: 61 years EKG: Sinus rhythm RIGHT ATRIAL ENLARGEMENT Nonspecific ST-T wave changes inferiorly ABNORMAL ECG NO PREVIOUS TRACING DOCTOR: Michael Verdin Interpretating Date/Time 12/14/2016 19:31:32
[2016-12-14] MEDS: INSULIN REGULAR (IV INFUSION) 100 UNITS in SODIUM CHLORIDE 0.9% INJ 99 ML IV SCH (20:02)
[2016-12-14] MEDS: METOPROLOL TARTRATE 25 MG TAB PO SCH (21:09)
[2016-12-14] MEDS: SODIUM CHLORIDE 0.9% FLUSH 5 ML FLUSH IV FLUSH SCH (21:10)
[2016-12-14] MEDS ORDERED: HEPARIN SODIUM - IV 10,000 UNITS/10 ML VIAL IV PRN ×2 (21:15)
[2016-12-14 22:28] LABS: APTT (PATIENT) 35.8 SEC (24.3-30.1)
[2016-12-14 22:40] LABS: ANION GAP 18 MEQ/L (5-15); BICARBONATE 17.1 MEQ/L (21.0-32.0); BLOOD UREA NITROGEN 49 MG/DL (7-18); CHLORIDE 117 MEQ/L (98-107); GLOMERULAR FILTRATION RATE 30 ML/MIN (>89); MAGNESIUM 2.8 MG/DL (1.5-2.5); POTASSIUM 3.6 MEQ/L (3.5-5.1); SODIUM (NA) 152 MEQ/L (136-145)
[2016-12-14 22:46] LABS: HEMOGLOBIN A1a 1.7 %; HEMOGLOBIN Ao 72.2 %; HEMOGLOBIN F 3.3 %; HEMOGLOBIN LA1C 3.8 %; HEMOGLOBIN P3 6.8 %
[2016-12-14 22:51] LABS: BETA-HYDROXYBUTYRATE 5.93 MMOL/L (0.00-0.39)
[2016-12-14] MEDS: DEXT 5%-NACL 0.9% 1000 ML INJ 1,000 ML IV SCH (23:11)
[2016-12-15] VITALS (9 sets, daily range): BP systolic 97–141; BP diastolic 51–63; PULSE 68–84; RESP 4–19; TEMP 98.1–98.7; O2SAT 95–98
[2016-12-15] MEDS: SODIUM CHLOR 0.9% 1000 ML INJ 1,000 ML IV SCH ×6 (03:32→23:32)
[2016-12-15] MEDS: CHLORHEXIDINE GLUCONATE 2 % 1 PACK (2 CLOTHS) TOP SCH (04:00)
[2016-12-15] MEDS ORDERED: CHLORHEXIDINE GLUCONATE 2 % 1 PACK (2 CLOTHS) TOP SCH (04:00)
[2016-12-15] MEDS: DEXT 5%-NACL 0.9% 1000 ML INJ 1,000 ML IV SCH ×5 (04:14→22:32)
[2016-12-15] MEDS: INSULIN REGULAR (IV INFUSION) 100 UNITS in SODIUM CHLORIDE 0.9% INJ 99 ML IV SCH (04:32)
[2016-12-15 05:34] LABS: APTT (PATIENT) 74.5 SEC (24.3-30.1)
[2016-12-15 05:45] LABS: BICARBONATE 19.2 MEQ/L (21.0-32.0); MAGNESIUM 2.6 MG/DL (1.5-2.5); POTASSIUM 3.5 MEQ/L (3.5-5.1)
[2016-12-15] MEDS: SODIUM CHLORIDE 0.9% FLUSH 5 ML FLUSH IV FLUSH SCH ×2 (08:35→20:30)
[2016-12-15] MEDS: PANTOPRAZOLE SODIUM 40 MG VIAL IV SCH (08:35)
[2016-12-15] MEDS: METOPROLOL TARTRATE 25 MG TAB PO SCH ×2 (08:35→20:30)
[2016-12-15] MEDS: PRAVASTATIN SOD 80 MG TAB PO SCH (08:35)
[2016-12-15] MEDS ORDERED: GLUCAGON 1 MG/ML VIAL OTHER PRN ×2 (08:45→15:30)
[2016-12-15] MEDS ORDERED: DC previous DKA orders (HMC 1917) XX ONE (08:45)
[2016-12-15] MEDS ORDERED: DEXTROSE 50% IN WATER 50 ML VIAL(D50) IV PUSH PRN ×2 (08:45→15:30)
[2016-12-15] MEDS ORDERED: DC Insulin drip 2 hrs post basal insulin dose XX ONE (08:45)
[2016-12-15] MEDS: INSULIN DETEMIR 100 UNITS/ML VIAL SQ SCH (09:00)
[2016-12-15] MEDS: HEPARIN-D5W INJ 250 ML IV SCH (10:21)
[2016-12-15] MEDS ORDERED: CALCIUM GLUCONATE INJ 2 GM in SODIUM CHLORIDE 0.9% INJ 100 ML IV ONE (11:00)
[2016-12-15] MEDS ORDERED: POTASSIUM PHOSPHATE INJ 15 MMOL in SODIUM CHLORIDE 0.9% INJ 150 ML IV ONE (11:00)
[2016-12-15] MEDS ORDERED: REGADENOSON INJ 0.4 MG/5 ML SYR ONE (11:11)
--- NOTE | 2016-12-15 11:15 | HHI.CCPN ---
Subjective Remarks/Hospital Course 61-year-old male with history of insulin dependent diabetes, brought in by ambulance for evaluation of nausea, vomiting, generalized weakness. The patient has been vomiting for the last 24 hours. Occasionally he notices some blood in his emesis. No diarrhea. No abdominal pain. He has experienced some chest pressure and burning more likely due to digestion and GERD. This has improved with Pepto-Bismol Objective Vital Signs Date Time Temp Pulse Resp B/P Pulse Ox O2 Delivery O2 Flow Rate FiO2 12/15/16 08:00 98.4 74 12 124/60 95 12/14/16 14:14 Room Air Intake and Output 12/14/16 12/14/16 12/15/16 08:00 16:00 00:00 Intake Total 2195 ml Output Total 1300 ml 1100 ml Balance -1300 ml 1095 ml Result Diagram: 12/14/16 1559 12/15/16 0508 Other Results Microbiology Date/Time Procedure Status Source Growth 12/14/16 09:10 Influenza Types A,B Antigen ([facility]) - Final Complete Nasal Washing NEGATIVE FOR FLU A AND B ANTIGEN.... Objective Remarks GENERAL: Well-nourished, well-developed patient. SKIN: Warm and dry. HEAD: Normocephalic. EYES: No scleral icterus. No injection or drainage. NECK: Supple, trachea midline. No JVD or lymphadenopathy. CARDIOVASCULAR: Regular rate and rhythm without murmurs, gallops, or rubs. RESPIRATORY: Breath sounds equal bilaterally. No accessory muscle use. GASTROINTESTINAL: Abdomen soft, non-tender, nondistended. MUSCULOSKELETAL: No cyanosis, or edema. BACK: Nontender without obvious deformity. No CVA tenderness. A/P Problem List: (1) Diabetic ketoacidosis ICD Code: E13.10 Status: Acute (2) Acute renal insufficiency ICD Code: N28.9 Status: Acute Assessment and Plan DKA - Insulin drip protocol - Transition to subcutaneous insulin today - anion gap closed Atypical chest pain - Cardiology consult appreciated - troponins trending up - Serial EKGs - Metoprolol aspirin pravastatin and heparin drip - Nuclear perfusion scan today per cardiology New-onset of A. fib - Heparin drip - Metoprolol for rate control - In and out of sinus rhythm - Further per Dr. Peng GERD - IV Pepcid Acute kidney injury - Due to dehydration - Aggressive IV fluids resuscitation - Monitor is and os - Electrolytes replacement DVT GI prophylaxis - Pepcid and heparin drip Level III Problem Qualifiers (1) Diabetic ketoacidosis: Qualified Code: E10.10 - Diabetic ketoacidosis without coma associated with type 1 diabetes mellitus Yuri Melchor MD Dec 15, 2016 11:15
[2016-12-15 11:33] LABS: BETA-HYDROXYBUTYRATE 2.78 MMOL/L (0.00-0.39); BICARBONATE 22.1 MEQ/L (21.0-32.0); MAGNESIUM 2.6 MG/DL (1.5-2.5); POTASSIUM 3.5 MEQ/L (3.5-5.1)
--- NOTE | 2016-12-15 12:11 | MB ---
cc: JENNY ARTHUR MD DATE OF CONSULTATION: 12/15/2016. REASON FOR CONSULTATION: Elevated troponin. HISTORY OF PRESENT ILLNESS: The patient is a very pleasant 61-year-old gentleman with a history of insulin dependent diabetes who is visiting from [place]. Unfortunately he forgot his diabetic testing kit at home and was continuing to use his insulin pump for the last couple of weeks without checking his blood sugars. He began feeling quite poor with nausea, vomiting and what he describes as heartburn. Essentially he described a burning sensation from his stomach rising up to his throat that was worse in some positions as opposed to others and relieved by TUMS. He denies any other type of chest pain. Eventually his mental status began deteriorating and his called and he was brought to the hospital where he was found to be in diabetic ketoacidosis. His diabetic ketoacidosis has been treated successfully but his troponins did trend upwards. Currently the patient is asymptomatic, though somnolent. He denies any current chest pain, shortness of breath, lightheadedness, dizziness or syncope. Of note, the patient has a history of what sounds like constrictive pericarditis and he is status post an anterior pericardectomy. The patient does say that he had a cardiac catheterization at that time about six or seven years ago, which was normal. He also says he had a relatively recent nonischemic nuclear stress test some time last year. PAST MEDICAL HISTORY: 1. Constrictive pericarditis status post pericardectomy with apparently normal cardiac catheterization at the time, approximately 2008. 2. Insulin-dependent diabetes. CURRENT MEDICATIONS: 1. IV Protonix. 2. IV heparin. 3. Insulin drip. ALLERGIES: NO KNOWN DRUG ALLERGIES. PHYSICAL EXAMINATION: VITAL SIGNS: Afebrile, pulse 69, respiratory rate 15, blood pressure 98/51, satting 96 on room air. GENERAL: A pleasant though somnolent gentleman in no distress. NECK: No jugular venous distention. LUNGS: Clear to auscultation bilaterally. CARDIOVASCULAR: Regular rate and rhythm. No murmurs appreciated. ABDOMEN: Benign. EXTREMITIES: No edema. LABORATORY DATA: Sodium 154, potassium 3.5, chloride 122, carbon dioxide 19.2, BUN 42, creatinine 1.86 down from 3.13, glucose 244, down from 983. Troponin 0.72. EKGS: EKG shows sinus rhythm with nonspecific S-T changes. IMPRESSION: 1. Elevated troponins. The patient had an elevated troponin in the setting of diabetic ketoacidosis, which is an expected finding and not necessarily indicative of acute coronary syndrome, particularly given his history of a cardiac catheterization which apparently showed no disease, although this was about seven years ago. Apparently he has also had a relatively recent nonischemic nuclear stress test. It has been long enough where I think there is value in repeating the nuclear stress test, which will be done while he is in the hospital. His chest pain is very atypical and did sound consistent with acid reflux; however, given the abnormal troponin and certain his risk factors for coronary disease, if his stress test does show significant ischemia, I would recommend cardiac catheterization at that point. Further recommendations will be based on the clinical course. Thank you again for the opportunity to participate this patient's care. MD KATHLEEN Jules/CASANDRA /9:20 AM /12:02 PM
--- NOTE | 2016-12-15 12:13 | RADRPT ---
EXAM DATE/TIME: 12/15/2016 10:47 [facility] COMPARISON: No previous studies available for comparison. INDICATIONS : Chest pain for 1 day. Cardiomegaly and elevated troponins. Angina. DOSE: 25.8 mCi Tc99m Myoview at stress. 8.1 mCi Tc99m Myoview at rest. 0.4 mg Lexiscan STRESS SYMPTOMS: Lightheaded. EJECTION FRACTION: 58% MEDICAL HISTORY : Hypertension. Diabetes mellitus type 2. SURGICAL HISTORY : Cholecystectomy. Left shoulder. ENCOUNTER: Initial ACUITY: 1 day PAIN SCALE: 3/10 LOCATION: Midsternal chest TECHNIQUE: The patient underwent pharmacologic stress with infusion of prescribed dose. Continuous ECG tracing was monitored during stress. Gated SPECT imaging was performed after stress and conventional SPECT i maging was performed at rest. The examination was performed on a SPECT/CT scanner, both attenuation and non-corrected datasets were reviewed. FINDINGS: DISTRIBUTION: The maximum perfused segment at stress is in the inferior wall. PERFUSION STUDY: No reversible perfusion defects. GATED STUDY: There is intact wall motion and thickening without hypokinetic or dyskinetic segments. CONCLUSION: No reversible perfusion defects to suggest ischemia. Ejection fraction 58%. RISK CATEGORY: Low (<1% Annual Mortality Rate) Tim Kramer MD on December 15, 2016 at 12:10 Board Certified Radiologist. This report was verified electronically.
[2016-12-15 14:56] LABS: APTT (PATIENT) 63.4 SEC (24.3-30.1)
--- NOTE | 2016-12-15 15:41 | EKG ---
Date Performed: 12/14/2016 Time Performed: 12:41:45 PTAGE: 61 years EKG: ATRIAL FIBRILLATION WITH RAPID VENTRICULAR RESPONSE WITH ABERRANT CONDUCTION OR VENTRICULAR PREMATURE COMPLEXES NONSPECIFIC ST & T-WAVE ABNORMALITY ABNORMAL RHYTHM ECG PREVIOUS TRACING : 12/14/2016 09.17 Compared to previous tracing, atrial fibrillation with rapi d ventricular response has replaced Sinus rhythm . Nonspecific changes remain. DOCTOR: Kan Escamilla Interpretating Date/Time 12/15/2016 15:40:14
--- NOTE | 2016-12-15 15:43 | EKG ---
Date Performed: 12/14/2016 Time Performed: 17:40:22 PTAGE: 61 years EKG: Sinus rhythm NONSPECIFIC T-WAVE ABNORMALITY BORDERLINE ECG PREVIOUS TRACING : 12/14/2016 12.41 Compared to previous tracing, sinus rhythm has replaced atr ial fibrillation. DOCTOR: Kan Escamilla Interpretating Date/Time 12/15/2016 15:41:51
--- NOTE | 2016-12-15 15:45 | EKG ---
Date Performed: 12/14/2016 Time Performed: 23:38:42 PTAGE: 61 years EKG: Sinus rhythm with PAC(s) with borderline 1st degree A-V block. Inferior T wave changes are nonspecific Borderline ECG PREVIOUS TRACING : 12/14/2016 17.40 Since previous tracing, no significant change noted DOCTOR: Kan Escamilla Interpretating Date/Time 12/15/2016 15:44:26
--- NOTE | 2016-12-15 15:47 | EKG ---
Date Performed: 12/15/2016 Time Performed: 05:51:20 PTAGE: 61 years EKG: Sinus rhythm NONSPECIFIC ST CHANGES PACS PREVIOUS TRACING : 12/14/2016 23.38 Since previous tracing, no significant change noted DOCTOR: Kan Escamilla Interpretating Date/Time 12/15/2016 15:46:45
[2016-12-15] MEDS: INSULIN ASPART SUPPLEMENTAL SCALE SQ SCH ×2 (17:29→20:30)
[2016-12-16] VITALS (7 sets, daily range): BP systolic 97–140; BP diastolic 54–91; PULSE 55–85; RESP 15–18; TEMP 98.1–98.4; O2SAT 95–99
[2016-12-16] MEDS: SODIUM CHLOR 0.9% 1000 ML INJ 1,000 ML IV SCH ×4 (03:32→14:35)
[2016-12-16] MEDS: DEXT 5%-NACL 0.9% 1000 ML INJ 1,000 ML IV SCH ×3 (03:32→11:00)
[2016-12-16] MEDS: CHLORHEXIDINE GLUCONATE 2 % 1 PACK (2 CLOTHS) TOP SCH (04:00)
[2016-12-16 04:36] LABS: AUTOMATED NEUTROPHIL # 5.7 TH/MM3 (1.8-7.7); BASOPHIL % 0.2 % (0.0-2.0); HEMATOCRIT 35.7 % (39.0-51.0); HEMO FLAGS DIFF FINAL; LYMPH % 7.8 % (9.0-44.0); LYMPHOCYTE # 0.5 TH/MM3 (1.0-4.8); MEAN CELL VOLUME 93.4 FL (80.0-100.0); MEAN CORPUSCULAR HEMOGLOBIN 31.9 PG (27.0-34.0); MEAN CORPUSCULAR HGB CONC 34.2 % (32.0-36.0); MONO % 8.6 % (0.0-8.0); NEUT % 83.4 % (16.0-70.0); PLATELET COUNT 119 TH/MM3 (150-450); RED BLOOD COUNT 3.83 MIL/MM3 (4.50-5.90); RED CELL DISTRIBUTION WIDTH 14.2 % (11.6-17.2); WHITE BLOOD COUNT 6.8 TH/MM3 (4.0-11.0)
[2016-12-16 04:54] LABS: APTT (PATIENT) 96.8 SEC (24.3-30.1)
[2016-12-16 05:06] LABS: ALKALINE PHOSPHATASE 71 U/L (45-117); ALT (GPT) 27 U/L (12-78); ANION GAP 11 MEQ/L (5-15); AST (GOT) 36 U/L (15-37); BLOOD UREA NITROGEN 24 MG/DL (7-18); CHLORIDE 118 MEQ/L (98-107); GLOMERULAR FILTRATION RATE 61 ML/MIN (>89); MAGNESIUM 2.2 MG/DL (1.5-2.5); POTASSIUM 3.1 MEQ/L (3.5-5.1); SODIUM (NA) 152 MEQ/L (136-145); TOTAL BILIRUBIN ADULT 0.5 MG/DL (0.2-1.0)
[2016-12-16] MEDS ORDERED: POTASSIUM PHOSPHATE INJ 30 MMOL in SODIUM CHLOR 0.9% 250 ML INJ 250 ML IV ONE (05:45)
[2016-12-16] MEDS: INSULIN ASPART SUPPLEMENTAL SCALE SQ SCH ×4 (06:09→21:14)
[2016-12-16] MEDS: PRAVASTATIN SOD 80 MG TAB PO SCH (08:07)
[2016-12-16] MEDS: INSULIN DETEMIR 100 UNITS/ML VIAL SQ SCH (08:07)
[2016-12-16] MEDS: METOPROLOL TARTRATE 25 MG TAB PO SCH ×2 (08:07→21:08)
[2016-12-16] MEDS: SODIUM CHLORIDE 0.9% FLUSH 5 ML FLUSH IV FLUSH SCH ×2 (08:08→21:09)
[2016-12-16] MEDS: PANTOPRAZOLE SODIUM 40 MG VIAL IV SCH (08:08)
[2016-12-16] MEDS: HEPARIN-D5W INJ 250 ML IV SCH (08:10)
[2016-12-16 08:21] LABS: APTT (PATIENT) 59.5 SEC (24.3-30.1)
--- NOTE | 2016-12-16 09:15 | PD.CARD.PN ---
Subjective Subjective Remarks Pt feels well, sinus arrhythmia on tele; no sx. Objective Medications Administered Medications Medications (Trade) Dose Ordered Sig/Caprice Route PRN Reason Start Time Stop Time Status Last Admin Dose Admin Sodium Chloride 1,000 ml @ 250 mls/hr Q4H IV 12/14/16 11:32 12/14/16 21:33 Dextrose/Sodium Chloride (D5W-NS 1000 ml Inj) 1,000 ml @ 200 mls/hr Q5H IV 12/14/16 11:32 12/15/16 04:14 Chlorhexidine Gluconate (Chlorhexidine 2% Cloth) 3 pack Taper DAILY@04 TOP 12/15/16 04:00 12/11/17 03:59 12/15/16 04:00 IV Flush (NS Flush) 2 ml BID IV FLUSH 12/14/16 21:00 12/16/16 08:08 Pantoprazole Sodium 40 mg 40 mg DAILY IV 12/15/16 09:00 12/16/16 08:08 Heparin Sodium/ Dextrose (Heparin-D5W Inj) 250 ml @ 0 mls/hr TITRATE IV 12/14/16 15:15 12/16/16 08:10 Pravastatin Sodium (Pravachol) 80 mg DAILY PO 12/14/16 15:30 12/16/16 08:07 Metoprolol Tartrate (Lopressor) 12.5 mg Q12HR PO 12/14/16 21:00 12/16/16 08:07 Insulin Detemir 15 units 15 units DAILY SQ 12/15/16 09:00 12/16/16 08:07 Potassium Phosphate/Sodium Chloride (Potassium Phosphate Inj/NS 250 ml Inj) 260 ml @ 43.333 mls/ hr ONCE ONCE IV 12/16/16 05:45 12/16/16 11:44 12/16/16 06:06 Vital Signs / I&O Vital Signs Date Time Temp Pulse Resp B/P Pulse Ox O2 Delivery O2 Flow Rate FiO2 12/16/16 08:00 74 12/16/16 08:00 98.3 74 16 132/67 99 12/16/16 04:00 98.4 77 15 140/91 97 12/16/16 04:00 77 12/16/16 00:00 69 12/16/16 00:00 98.2 69 17 97/54 96 12/15/16 20:00 98.5 73 14 118/55 96 12/15/16 20:00 73 12/15/16 16:00 98.7 78 12 141/63 97 12/15/16 16:00 77 12/15/16 14:00 81 12/15/16 12:00 78 12/15/16 12:00 98.3 84 12 109/52 97 I/O 12/15/16 12/15/16 12/15/16 12/16/16 12/16/16 12/16/16 07:00 15:00 23:00 07:00 15:00 23:00 Intake Total 1802 ml 1274 ml 778 ml 885 ml Output Total 400 ml 900 ml 1100 ml 700 ml Balance 1402 ml 374 ml -322 ml 185 ml Intake Oral 600 ml 500 ml 800 ml IV Total 1802 ml 674 ml 278 ml 85 ml Output Urine Total 400 ml 900 ml 1100 ml 700 ml Physical Exam GENERAL: This is a well-nourished, well-developed patient, in no apparent distress. CARDIOVASCULAR: Regular rate and rhythm without murmurs, gallops, or rubs. RESPIRATORY: Clear to auscultation. Breath sounds equal bilaterally. No wheezes , rales, or rhonchi. GASTROINTESTINAL: Abdomen soft, non-tender, nondistended. Normal active bowel sounds MUSCULOSKELETAL: Extremities without clubbing, cyanosis, or edema. NEURO: Alert & Oriented x4 to person, place, time, situation. Moves all ext x4 Laboratory Laboratory Tests Test 12/15/16 12/15/16 12/16/16 12/16/16 10:30 14:39 03:57 07:23 Sodium Level 154 MEQ/L 152 MEQ/L Potassium Level 3.5 MEQ/L 3.1 MEQ/L Chloride Level 122 MEQ/L 118 MEQ/L Carbon Dioxide Level 22.1 MEQ/L 23.0 MEQ/L Anion Gap 10 MEQ/L 11 MEQ/L Blood Urea Nitrogen 38 MG/DL 24 MG/DL Creatinine 1.61 MG/DL 1.22 MG/DL Estimat Glomerular Filtration 44 ML/MIN 61 ML/MIN Rate Random Glucose 200 MG/DL 100 MG/DL Calcium Level 7.6 MG/DL 7.8 MG/DL Phosphorus Level 1.5 MG/DL 2.3 MG/DL Magnesium Level 2.6 MG/DL 2.2 MG/DL B-Hydroxybutyrate 2.78 MMOL/L Activated Partial 63.4 SEC 96.8 SEC 59.5 SEC Thromboplast Time White Blood Count 6.8 TH/MM3 Red Blood Count 3.83 MIL/MM3 Hemoglobin 12.2 GM/DL Hematocrit 35.7 % Mean Corpuscular Volume 93.4 FL Mean Corpuscular Hemoglobin 31.9 PG Mean Corpuscular Hemoglobin 34.2 % Concent Red Cell Distribution Width 14.2 % Platelet Count 119 TH/MM3 Mean Platelet Volume 9.0 FL Neutrophils (%) (Auto) 83.4 % Lymphocytes (%) (Auto) 7.8 % Monocytes (%) (Auto) 8.6 % Eosinophils (%) (Auto) 0.0 % Basophils (%) (Auto) 0.2 % Neutrophils # (Auto) 5.7 TH/MM3 Lymphocytes # (Auto) 0.5 TH/MM3 Monocytes # (Auto) 0.6 TH/MM3 Eosinophils # (Auto) 0.0 TH/MM3 Basophils # (Auto) 0.0 TH/MM3 CBC Comment DIFF FINAL Differential Comment Total Bilirubin 0.5 MG/DL Aspartate Amino Transf 36 U/L (AST/SGOT) Alanine Aminotransferase 27 U/L (ALT/SGPT) Alkaline Phosphatase 71 U/L Total Protein 5.5 GM/DL Albumin 2.7 GM/DL Imaging Last Impressions Myocardial Perfusion Scan Nuc Med 12/15/16 0000 Signed Impressions: Service Date/Time: Thursday, December 15, 2016 10:47 - CONCLUSION: No reversible perfusion defects to suggest ischemia. Ejection fraction 58%%. RISK CATEGORY: Low (<1%% Annual Mortality Rate) Tim Kramer MD Chest X-Ray 12/14/16 0900 Signed Impressions: Service Date/Time: Wednesday, December 14, 2016 09:40 - CONCLUSION: 1. Cardiomegaly. 2. No acute focal pulmonary infiltrate or pulmonary vascular congestion. Meliton Clemens MD Assessment and Plan Problem List: (1) Paroxysmal atrial fibrillation Assessment and Plan: In the setting of acidemia due to DKA, no prior diagnosis. Unclear long-term burden; discussed at length including all options ; he doesn't feel he would tolerate a 30-day holter and prefers a loop recorder , which is more likely to provide helpful information in order to determine necessity for long-term anticoagulation. Will proceed with this tomorrow. (2) Elevated troponin Assessment and Plan: Likely due to DKA, now s/p non-ischemic nuc stress, will d /c heparin ggt. (3) Diabetic ketoacidosis Assessment and Plan: resolved, off insulin ggt (4) Acute renal insufficiency Assessment and Plan: resolved Assessment and Plan could likely be d/c'd w/ outpt f/u tomorrow after loop and he will f/u in my office. Problem Qualifiers (1) Diabetic ketoacidosis: Qualified Code: E10.10 - Diabetic ketoacidosis without coma associated with type 1 diabetes mellitus Kan Escamilla MD Dec 16, 2016 09:15
--- NOTE | 2016-12-16 13:42 | EKG ---
Date Performed: 12/15/2016 Time Performed: 12:44:51 PTAGE: 61 years EKG: Sinus rhythm with PACs NONSPECIFIC T-WAVE ABNORMALITY Compared to prior tracing no significant change ABNORMAL [facility] ECG PREVIOUS TRACING : 12/15/2016 05.51 DOCTOR: Kan Escamilla Interpretating Date/Time 12/16/2016 13:41:12
--- NOTE | 2016-12-16 13:42 | EKG ---
Date Performed: 12/15/2016 Time Performed: 17:39:37 PTAGE: 61 years EKG: Sinus rhythm WITH MARKED SINUS ARRHYTHMIA and PACs NONSPECIFIC T-WAVE ABNORMALITY Compared to prior tracing no si gnificant change BORDERLINE ECG PREVIOUS TRACING : 12/15/2016 12.44 DOCTOR: Kan Escamilla Interpretating Date/Time 12/16/2016 13:41:43
--- NOTE | 2016-12-16 18:57 | HHI.PR ---
Subjective Remarks pt seen this morning around 11 AM. The pain, wakes up for exam. Denies any chest pain or shortness of breath. Denies any nausea or vomiting. He says that he lost his insulin for some time prior to coming to the hospital. As he feels much better than on admission. Objective Vital Signs Date Time Temp Pulse Resp B/P Pulse Ox O2 Delivery O2 Flow Rate FiO2 12/16/16 16:00 84 12/16/16 16:00 98.3 85 16 138/73 98 12/16/16 12:00 98.1 69 16 138/63 96 12/16/16 12:00 69 12/16/16 08:00 74 12/16/16 08:00 98.3 74 16 132/67 99 12/16/16 04:00 98.4 77 15 140/91 97 12/16/16 04:00 77 12/16/16 00:00 69 12/16/16 00:00 98.2 69 17 97/54 96 12/15/16 20:00 98.5 73 14 118/55 96 12/15/16 20:00 73 I/O 12/15/16 12/15/16 12/15/16 12/16/16 12/16/16 12/16/16 07:00 15:00 23:00 07:00 15:00 23:00 Intake Total 1802 ml 1274 ml 778 ml 885 ml 1108 ml Output Total 400 ml 900 ml 1100 ml 700 ml 1100 ml Balance 1402 ml 374 ml -322 ml 185 ml 8 ml Intake Oral 600 ml 500 ml 800 ml 840 ml IV Total 1802 ml 674 ml 278 ml 85 ml 268 ml Output Urine Total 400 ml 900 ml 1100 ml 700 ml 1100 ml # Bowel Movements 0 Result Diagram: 12/16/16 0357 12/16/16 0357 Objective Remarks GENERAL: Patient sleeping, wakes up for exam. Alert and oriented 3. SKIN: Warm and dry. HEAD: Normocephalic. EYES: No scleral icterus. No injection or drainage. NECK: Supple, trachea midline. No JVD or lymphadenopathy. CARDIOVASCULAR: Regular rate and rhythm without murmurs, gallops, or rubs. RESPIRATORY: Breath sounds equal bilaterally. No accessory muscle use. GASTROINTESTINAL: Abdomen soft, non-tender, nondistended. MUSCULOSKELETAL: No cyanosis, or edema. BACK: Nontender without obvious deformity. No CVA tenderness. A/P Assessment and Plan //DKA //Uncontrolled diabetes. A1c 12. -Resolved with insulin drip, which is now discontinued - anion gap closed -Glucose controlled here on Levemir 15 once daily, sliding scale. -Diabetic diet, however will nothing by mouth for procedure tomorrow //Atypical chest pain - Cardiology consult appreciated - troponins trending up - Serial EKGs - Metoprolol aspirin pravastatin and heparin drip - Nuclear perfusion scan today per cardiology //Paroxysmal New-onset of A. fib - Heparin drip - Continue Metoprolol for rate control - In and out of sinus rhythm -Question of whether patient has chronic A. fib burden or this was just exacerbated by DKAPlanning for event monitor placement 12/[address] Peng //GERD -Switched to by mouth Protonix. Acute kidney injury. Resolved. - Due to dehydration from DKA - Resolved after Aggressive IV fluids resuscitation - Electrolytes replacement //Hypokalemia. Replaced per protocol. //Hypernatremia. Left over after glucose decrease. Overall appears stable. Expect to improve. Discontinue D5 normal saline. Switch to one half normal saline maintenance fluids. Continue to monitor. DVT GI prophylaxis - Pepcid and heparin drip Discharge Planning Possible discharge in 1-2 days after loop recorder placement. David Hensley MD Dec 16, 2016 18:57
[2016-12-16] MEDS: 1/2 NS + KCL 20 MEQ INJ 1,000 ML IV SCH (21:09)
[2016-12-17] VITALS: BP 146/67; PULSE 64; RESP 18; TEMP 98.5; O2SAT 95
[2016-12-17 02:00] VITALS: PULSE 59
[2016-12-17 04:00] VITALS: BP 146/67; PULSE 60; PULSE 64; RESP 18; TEMP 98.5; O2SAT 95
[2016-12-17] MEDS: CHLORHEXIDINE GLUCONATE 2 % 1 PACK (2 CLOTHS) TOP SCH (04:00)
[2016-12-17 04:43] LABS: AUTOMATED NEUTROPHIL # 3.6 TH/MM3 (1.8-7.7); BASOPHIL % 0.2 % (0.0-2.0); EOSINOPHIL % 0.4 % (0.0-4.0); HEMATOCRIT 34.5 % (39.0-51.0); LYMPH % 13.8 % (9.0-44.0); LYMPHOCYTE # 0.6 TH/MM3 (1.0-4.8); MEAN CELL VOLUME 91.7 FL (80.0-100.0); MEAN CORPUSCULAR HEMOGLOBIN 31.5 PG (27.0-34.0); MEAN CORPUSCULAR HGB CONC 34.4 % (32.0-36.0); MONO % 9.1 % (0.0-8.0); NEUT % 76.5 % (16.0-70.0); PLATELET COUNT 104 TH/MM3 (150-450); RED BLOOD COUNT 3.76 MIL/MM3 (4.50-5.90); WHITE BLOOD COUNT 4.7 TH/MM3 (4.0-11.0)
[2016-12-17 04:47] LABS: HEMO FLAGS AUTO DIFF
[2016-12-17 05:07] LABS: BICARBONATE 25.8 MEQ/L (21.0-32.0); MAGNESIUM 2.2 MG/DL (1.5-2.5); POTASSIUM 3.3 MEQ/L (3.5-5.1)
[2016-12-17 06:00] VITALS: PULSE 56
[2016-12-17] MEDS: INSULIN ASPART SUPPLEMENTAL SCALE SQ SCH (06:38)
[2016-12-17] MEDS: 1/2 NS + KCL 20 MEQ INJ 1,000 ML IV SCH (07:22)
[2016-12-17 07:46] LABS: BANDS 6 % (0-6); NEUTROPHIL # MANUAL DIFF 3.8 TH/MM3 (1.8-7.7); POLYS (SEG NEUTROPHILS) 75 % (16-70); WBC DIFF SAMPLE 100
[2016-12-17 07:47] LABS: PLATELET ESTIMATE SMEAR LOW (NORMAL); PLATELET MORPHOLOGY NORMAL (NORMAL); SCAN/DIFF FINAL DIFF MANUAL
[2016-12-17 08:00] VITALS: BP 154/67; PULSE 56; RESP 20; TEMP 98; O2SAT 97
[2016-12-17] MEDS ORDERED: MIDAZOLAM HCL 2 MG/2 ML VIAL ONE (08:17)
[2016-12-17] MEDS ORDERED: ceFAZolin INJ 1,000 MG VIAL ONE (08:17)
--- NOTE | 2016-12-17 08:48 | PD.CARD.PN ---
Subjective Subjective Remarks Doing well, tolerated loop well. Objective Medications Administered Medications Medications (Trade) Dose Ordered Sig/Caprice Route PRN Reason Start Time Stop Time Status Last Admin Dose Admin Sodium Chloride (NS 1000 ml Inj) 1,000 ml @ 250 mls/hr Q4H IV 12/14/16 11:32 12/14/16 21:33 Chlorhexidine Gluconate (Chlorhexidine 2% Cloth) 3 pack Taper DAILY@04 TOP 12/15/16 04:00 12/11/17 03:59 12/15/16 04:00 IV Flush (NS Flush) 2 ml BID IV FLUSH 12/14/16 21:00 12/16/16 21:09 Acetaminophen (Tylenol) 650 mg Q6H PRN PO PAIN 1-5 AND/OR FEVER >101F 12/14/16 11:45 12/16/16 16:44 Pravastatin Sodium (Pravachol) 80 mg DAILY PO 12/14/16 15:30 12/16/16 08:07 Metoprolol Tartrate (Lopressor) 12.5 mg Q12HR PO 12/14/16 21:00 12/16/16 21:08 Insulin Detemir 15 units 15 units DAILY SQ 12/15/16 09:00 12/16/16 08:07 Potassium Chloride/Sodium Chloride (1/2 NS + KCl 20 Meq Inj) 1,000 ml @ 100 mls/hr Q10H IV 12/16/16 19:00 12/17/16 07:22 Vital Signs / I&O Vital Signs Date Time Temp Pulse Resp B/P Pulse Ox O2 Delivery O2 Flow Rate FiO2 12/17/16 06:00 56 12/17/16 04:00 60 12/17/16 04:00 98.5 64 18 146/67 95 12/17/16 02:00 59 12/17/16 00:00 98.5 64 18 146/67 95 12/17/16 00:00 64 12/16/16 22:00 66 12/16/16 20:00 55 12/16/16 20:00 98.4 55 18 118/58 95 12/16/16 16:00 84 12/16/16 16:00 98.3 85 16 138/73 98 12/16/16 12:00 98.1 69 16 138/63 96 12/16/16 12:00 69 I/O 12/16/16 12/16/16 12/16/16 12/17/16 12/17/16 12/17/16 07:00 15:00 23:00 07:00 15:00 23:00 Intake Total 885 ml 1108 ml 215 ml 678 ml Output Total 700 ml 1100 ml 1150 ml Balance 185 ml 8 ml 215 ml -472 ml Intake Oral 800 ml 840 ml 0 ml IV Total 85 ml 268 ml 215 ml 678 ml Output Urine Total 700 ml 1100 ml 1150 ml # Voids 1 2 # Bowel Movements 0 0 0 Physical Exam GENERAL: This is a well-nourished, well-developed patient, in no apparent distress. CARDIOVASCULAR: Regular rate and rhythm without murmurs, gallops, or rubs. RESPIRATORY: Clear to auscultation. Breath sounds equal bilaterally. No wheezes , rales, or rhonchi. GASTROINTESTINAL: Abdomen soft, non-tender, nondistended. Normal active bowel sounds MUSCULOSKELETAL: Extremities without clubbing, cyanosis, or edema. NEURO: Alert & Oriented x4 to person, place, time, situation. Moves all ext x4 Laboratory Laboratory Tests Test 12/17/16 03:57 White Blood Count 4.7 TH/MM3 Red Blood Count 3.76 MIL/MM3 Hemoglobin 11.8 GM/DL Hematocrit 34.5 % Mean Corpuscular Volume 91.7 FL Mean Corpuscular Hemoglobin 31.5 PG Mean Corpuscular Hemoglobin 34.4 % Concent Red Cell Distribution Width 14.0 % Platelet Count 104 TH/MM3 Mean Platelet Volume 9.3 FL Neutrophils (%) (Auto) 76.5 % Lymphocytes (%) (Auto) 13.8 % Monocytes (%) (Auto) 9.1 % Eosinophils (%) (Auto) 0.4 % Basophils (%) (Auto) 0.2 % Neutrophils # (Auto) 3.6 TH/MM3 Lymphocytes # (Auto) 0.6 TH/MM3 Monocytes # (Auto) 0.4 TH/MM3 Eosinophils # (Auto) 0.0 TH/MM3 Basophils # (Auto) 0.0 TH/MM3 CBC Comment AUTO DIFF Differential Total Cells 100 Counted Neutrophils % (Manual) 75 % Band Neutrophils % 6 % Lymphocytes % 7 % Monocytes % 12 % Neutrophils # (Manual) 3.8 TH/MM3 Differential Comment FINAL DIFF MANUAL Platelet Estimate LOW Platelet Morphology Comment NORMAL Red Cell Morphology Comment NORMAL Sodium Level 143 MEQ/L Potassium Level 3.3 MEQ/L Chloride Level 108 MEQ/L Carbon Dioxide Level 25.8 MEQ/L Anion Gap 9 MEQ/L Blood Urea Nitrogen 16 MG/DL Creatinine 0.98 MG/DL Estimat Glomerular Filtration 78 ML/MIN Rate Random Glucose 250 MG/DL Calcium Level 8.0 MG/DL Phosphorus Level 1.9 MG/DL Magnesium Level 2.2 MG/DL Albumin 2.6 GM/DL Imaging Last Impressions Myocardial Perfusion Scan Nuc Med 12/15/16 0000 Signed Impressions: Service Date/Time: Thursday, December 15, 2016 10:47 - CONCLUSION: No reversible perfusion defects to suggest ischemia. Ejection fraction 58%%. RISK CATEGORY: Low (<1%% Annual Mortality Rate) Tim Kramer MD Chest X-Ray 12/14/16 0900 Signed Impressions: Service Date/Time: Wednesday, December 14, 2016 09:40 - CONCLUSION: 1. Cardiomegaly. 2. No acute focal pulmonary infiltrate or pulmonary vascular congestion. Meliton Clemens MD Assessment and Plan Problem List: (1) Paroxysmal atrial fibrillation Assessment and Plan: In the setting of acidemia due to DKA, no prior diagnosis. Unclear long-term burden; discussed at length including all options ; he doesn't feel he would tolerate a 30-day holter and prefers a loop recorder , now implanted. (2) Elevated troponin Assessment and Plan: Likely due to DKA, now s/p non-ischemic nuc stress (3) Diabetic ketoacidosis Assessment and Plan: resolved, off insulin ggt (4) Acute renal insufficiency Assessment and Plan: resolved Assessment and Plan Ok to d/c home from my standpoint, will see him in my office in 1-2 weeks. Problem Qualifiers (1) Diabetic ketoacidosis: Qualified Code: E10.10 - Diabetic ketoacidosis without coma associated with type 1 diabetes mellitus Kan Escamilla MD Dec 17, 2016 08:48
[2016-12-17] MEDS ORDERED: PANTOPRAZOLE SOD 40 MG DELAYED RELEASE TAB PO SCH (09:00)
[2016-12-17] MEDS: SODIUM CHLORIDE 0.9% FLUSH 5 ML FLUSH IV FLUSH SCH (09:43)
--- NOTE | 2016-12-17 09:43 | HHI.PR ---
Subjective Remarks Follow-up DKA/paroxysmal A. fib/atypical chest pain 12/17/16-patient seen and examined; had loop recorder placed today. Denies any chest pain or shortness of breath. Clear by cardiology for discharge. by the bedside. Objective Vitals Vital Signs Date Time Temp Pulse Resp B/P Pulse Ox O2 Delivery O2 Flow Rate FiO2 12/17/16 06:00 56 12/17/16 04:00 60 12/17/16 04:00 98.5 64 18 146/67 95 12/17/16 02:00 59 12/17/16 00:00 98.5 64 18 146/67 95 12/17/16 00:00 64 12/16/16 22:00 66 12/16/16 20:00 55 12/16/16 20:00 98.4 55 18 118/58 95 12/16/16 16:00 84 12/16/16 16:00 98.3 85 16 138/73 98 12/16/16 12:00 98.1 69 16 138/63 96 12/16/16 12:00 69 I/O 12/16/16 12/16/16 12/16/16 12/17/16 12/17/16 12/17/16 07:00 15:00 23:00 07:00 15:00 23:00 Intake Total 885 ml 1108 ml 215 ml 678 ml Output Total 700 ml 1100 ml 1150 ml Balance 185 ml 8 ml 215 ml -472 ml Intake Oral 800 ml 840 ml 0 ml IV Total 85 ml 268 ml 215 ml 678 ml Output Urine Total 700 ml 1100 ml 1150 ml # Voids 1 2 # Bowel Movements 0 0 0 Result Diagram: 12/17/16 0357 12/17/16 0357 Imaging Last Impressions Myocardial Perfusion Scan Nuc Med 12/15/16 0000 Signed Impressions: Service Date/Time: Thursday, December 15, 2016 10:47 - CONCLUSION: No reversible perfusion defects to suggest ischemia. Ejection fraction 58%%. RISK CATEGORY: Low (<1%% Annual Mortality Rate) Tim Kramer MD Chest X-Ray 12/14/16 0900 Signed Impressions: Service Date/Time: Wednesday, December 14, 2016 09:40 - CONCLUSION: 1. Cardiomegaly. 2. No acute focal pulmonary infiltrate or pulmonary vascular congestion. Meliton Clemens MD Objective Remarks GENERAL: NAD SKIN: Warm and dry. HEAD: Normocephalic. EYES: No scleral icterus. No injection or drainage. NECK: Supple, trachea midline. No JVD or lymphadenopathy. CARDIOVASCULAR: Irregular Regular rate and rhythm without murmurs, gallops, or rubs. RESPIRATORY: Breath sounds equal bilaterally. No accessory muscle use. GASTROINTESTINAL: Abdomen soft, non-tender, nondistended. MUSCULOSKELETAL: No cyanosis, or edema. BACK: Nontender without obvious deformity. No CVA tenderness. A/P Problem List: (1) Diabetic ketoacidosis ICD Code: E13.10 Status: Acute (2) Paroxysmal atrial fibrillation ICD Code: I48.0 Status: Acute (3) Acute renal insufficiency ICD Code: N28.9 Status: Acute (4) Elevated troponin ICD Code: R74.8 Status: Acute Assessment and Plan 61-year-old male with 1-DKA: Resolved status post insulin drip, treatment per DKA protocol. 2-Diabetes type 1: A1c 12. on Levemir 15 once daily, sliding scale. 3-Atypical chest pain - Cardiology consult appreciated - Metoprolol aspirin pravastatin and heparin drip - Nuclear perfusion scan 4-Paroxysmal New-onset of A. fib Loop recorder replaced 12/17/16 s/p Heparin drip Continue Metoprolol for rate control 5-GERD On Protonix. 6-Acute kidney injury. Resolved. - Due to dehydration from DKA - Resolved after Aggressive IV fluids resuscitation 7-Hypokalemia. Replaced per protocol. 8-Hypernatremia. Resolved DVT GI prophylaxis - Pepcid and heparin drip Problem Qualifiers (1) Diabetic ketoacidosis: Qualified Code: E10.10 - Diabetic ketoacidosis without coma associated with type 1 diabetes mellitus Tim Matson MD Dec 17, 2016 09:43
[2016-12-17] MEDS: METOPROLOL TARTRATE 25 MG TAB PO SCH (09:44)
[2016-12-17] MEDS: INSULIN DETEMIR 100 UNITS/ML VIAL SQ SCH (09:44)
[2016-12-17] MEDS ORDERED: PANT40TA3 PO (09:45)
[2016-12-17] MEDS ORDERED: METO25TA3 PO (09:45)
[2016-12-17] MEDS ORDERED: PRAV80TA PO (09:45)
[2016-12-17] MEDS ORDERED: LEVEMIR SQ (09:45)
[2016-12-17] MEDS ORDERED: ASPI81TA11 PO (09:50)
--- NOTE | 2016-12-17 09:50 | HHI.DS ---
Discharge Summary Admission Date Dec 14, 2016 at 10:40 Discharge Date: Dec 17, 2016 Admitting Diagnosis DKA (1) Diabetic ketoacidosis ICD Code: E13.10 (2) Paroxysmal atrial fibrillation ICD Code: I48.0 (3) Acute renal insufficiency ICD Code: N28.9 (4) Elevated troponin ICD Code: R74.8 Procedures Loop recorder placed 12/17/16 Brief History - From Admission 61-year-old male with history of insulin dependent diabetes, brought in by ambulance for evaluation of nausea, vomiting, generalized weakness. The patient has been vomiting for the last 24 hours. Occasionally he notices some blood in his emesis. No diarrhea. No abdominal pain. He has experienced some chest pressure and burning more likely due to digestion and GERD. This has improved with Pepto-Bismol CBC/BMP: 12/17/16 0357 12/17/16 0357 Significant Findings Laboratory Tests Test 12/14/16 12/14/16 12/14/16 12/14/16 10:02 13:30 13:38 15:33 Urine Glucose (UA) 1000 mg/dL (NEG) Urine Ketones 80 mg/dL (NEG) Urine Occult Blood SMALL (NEG) Urine WBC 7 /hpf (0-5) Urine Mucus FEW /lpf (OCC) Carbon Dioxide Level 6.6 MEQ/L 9.7 MEQ/L (21.0-32.0) (21.0-32.0) Anion Gap 30 MEQ/L (5-15) 27 MEQ/L (5-15) Blood Urea Nitrogen 56 MG/DL (7-18) 55 MG/DL (7-18) Creatinine 2.41 MG/DL 2.38 MG/DL (0.60-1.30) (0.60-1.30) Estimat Glomerular Filtration 28 ML/MIN (>89) 28 ML/MIN (>89) Rate Random Glucose 701 MG/DL 617 MG/DL (74-106) (74-106) Calcium Level 7.3 MG/DL 7.7 MG/DL (8.5-10.1) (8.5-10.1) Protein Corrected Calcium 8.1 MG/DL (8.5-10.1) Magnesium Level 3.0 MG/DL 3.1 MG/DL (1.5-2.5) (1.5-2.5) Total Protein 5.6 GM/DL (6.4-8.2) Troponin I 0.16 NG/ML 0.21 NG/ML (0.02-0.05) (0.02-0.05) Sodium Level 146 MEQ/L (136-145) Chloride Level 109 MEQ/L (98-107) Test 12/14/16 12/14/16 12/14/16 12/15/16 15:59 19:26 22:02 05:08 White Blood Count 16.0 TH/MM3 (4.0-11.0) Red Blood Count 4.28 MIL/MM3 (4.50-5.90) Mean Corpuscular Hemoglobin 31.5 % Concent (32.0-36.0) Activated Partial 21.5 SEC 35.8 SEC 74.5 SEC Thromboplast Time (24.3-30.1) (24.3-30.1) (24.3-30.1) Troponin I 0.40 NG/ML 0.72 NG/ML (0.02-0.05) (0.02-0.05) Sodium Level 152 MEQ/L 154 MEQ/L (136-145) (136-145) Chloride Level 117 MEQ/L 122 MEQ/L (98-107) (98-107) Carbon Dioxide Level 17.1 MEQ/L 19.2 MEQ/L (21.0-32.0) (21.0-32.0) Anion Gap 18 MEQ/L (5-15) Blood Urea Nitrogen 49 MG/DL (7-18) 42 MG/DL (7-18) Creatinine 2.23 MG/DL 1.86 MG/DL (0.60-1.30) (0.60-1.30) Estimat Glomerular Filtration 30 ML/MIN (>89) 37 ML/MIN (>89) Rate Random Glucose 333 MG/DL 244 MG/DL (74-106) (74-106) Hemoglobin A1c 12.5 % (4.3-6.0) Calcium Level 7.7 MG/DL 7.5 MG/DL (8.5-10.1) (8.5-10.1) Phosphorus Level 1.5 MG/DL 1.2 MG/DL (2.5-4.9) (2.5-4.9) Magnesium Level 2.8 MG/DL 2.6 MG/DL (1.5-2.5) (1.5-2.5) B-Hydroxybutyrate 5.93 MMOL/L (0.00-0.39) Test 12/15/16 12/15/16 12/16/16 12/16/16 10:30 14:39 03:57 07:23 Sodium Level 154 MEQ/L 152 MEQ/L (136-145) (136-145) Chloride Level 122 MEQ/L 118 MEQ/L (98-107) (98-107) Blood Urea Nitrogen 38 MG/DL (7-18) 24 MG/DL (7-18) Creatinine 1.61 MG/DL (0.60-1.30) Estimat Glomerular Filtration 44 ML/MIN (>89) 61 ML/MIN (>89) Rate Random Glucose 200 MG/DL (74-106) Calcium Level 7.6 MG/DL 7.8 MG/DL (8.5-10.1) (8.5-10.1) Phosphorus Level 1.5 MG/DL 2.3 MG/DL (2.5-4.9) (2.5-4.9) Magnesium Level 2.6 MG/DL (1.5-2.5) B-Hydroxybutyrate 2.78 MMOL/L (0.00-0.39) Activated Partial 63.4 SEC 96.8 SEC 59.5 SEC Thromboplast Time (24.3-30.1) (24.3-30.1) (24.3-30.1) Red Blood Count 3.83 MIL/MM3 (4.50-5.90) Hemoglobin 12.2 GM/DL (13.0-17.0) Hematocrit 35.7 % (39.0-51.0) Platelet Count 119 TH/MM3 (150-450) Neutrophils (%) (Auto) 83.4 % (16.0-70.0) Lymphocytes (%) (Auto) 7.8 % (9.0-44.0) Monocytes (%) (Auto) 8.6 % (0.0-8.0) Lymphocytes # (Auto) 0.5 TH/MM3 (1.0-4.8) Potassium Level 3.1 MEQ/L (3.5-5.1) Total Protein 5.5 GM/DL (6.4-8.2) Albumin 2.7 GM/DL (3.4-5.0) Test 12/17/16 03:57 Red Blood Count 3.76 MIL/MM3 (4.50-5.90) Hemoglobin 11.8 GM/DL (13.0-17.0) Hematocrit 34.5 % (39.0-51.0) Platelet Count 104 TH/MM3 (150-450) Neutrophils (%) (Auto) 76.5 % (16.0-70.0) Monocytes (%) (Auto) 9.1 % (0.0-8.0) Lymphocytes # (Auto) 0.6 TH/MM3 (1.0-4.8) Neutrophils % (Manual) 75 % (16-70) Lymphocytes % 7 % (9-44) Monocytes % 12 % (0-8) Platelet Estimate LOW (NORMAL) Potassium Level 3.3 MEQ/L (3.5-5.1) Chloride Level 108 MEQ/L (98-107) Estimat Glomerular Filtration 78 ML/MIN (>89) Rate Random Glucose 250 MG/DL (74-106) Calcium Level 8.0 MG/DL (8.5-10.1) Phosphorus Level 1.9 MG/DL (2.5-4.9) Albumin 2.6 GM/DL (3.4-5.0) PE at Discharge GENERAL: NAD SKIN: Warm and dry. HEAD: Normocephalic. EYES: No scleral icterus. No injection or drainage. NECK: Supple, trachea midline. No JVD or lymphadenopathy. CARDIOVASCULAR: Irregular Regular rate and rhythm without murmurs, gallops, or rubs. RESPIRATORY: Breath sounds equal bilaterally. No accessory muscle use. GASTROINTESTINAL: Abdomen soft, non-tender, nondistended. MUSCULOSKELETAL: No cyanosis, or edema. BACK: Nontender without obvious deformity. No CVA tenderness. Hospital Course Patient initially admitted secondary to diabetic ketoacidosis and started on insulin drip, treatment per DKA protocol in the ICU. As his anion gap closed and DKA resolved patient was switched to subcutaneous insulin and all aggressive fluid resuscitations discontinued. Secondary to elevated troponin I and atypical chest pain cardiology was consulted and a nuclear stress test was performed. Patient was started on aspirin and Lopressor. He also was diagnosed with paroxysmal new onset atrial fibrillation for which heparin drip was started and patient underwent placement of loop recorder on 12/17/16. Heparin drip was subsequently discontinued. Renal function improved with IV fluid hydration. All electrolyte abnormalities were corrected accordingly. DVT and GI prophylaxis were provided. Vital signs remained stable and patient condition at the time of discharge improved. Pt Condition on Discharge: Stable Discharge Disposition: Discharge Home Discharge Time: <= 30 minutes Discharge Instructions DIET: Follow Instructions for: Diabetic Diet Follow up Referrals: Cardiology PCP Follow-up - 1 Week New Medications: Aspirin DR (Aspirin EC) 81 Mg Tabdr 81 MG PO DAILY Prevent Blood Clot #30 Ref 0 TAB Insulin Detemir Inj (Levemir Inj) 1,000 unit/ 10 ML Vial 15 UNITS SQ DAILY Blood Sugar Management #100 INJECTION Metoprolol Tartrate (Metoprolol Tartrate) 25 Mg Tab 12.5 MG PO Q12HR Blood Pressure Management #60 Ref 3 TAB Pantoprazole (Pantoprazole) 40 Mg Tab 40 MG PO DAILY Manage Heartburn #30 TAB Pravastatin (Pravachol) 80 Mg Tab 80 MG PO DAILY Cholesterol Management #30 Ref 3 TAB Tim Matson MD Dec 17, 2016 09:50
[2016-12-17 12:00] VITALS: BP 135/64; PULSE 56; RESP 22; TEMP 98.3; O2SAT 97
--- NOTE | 2016-12-18 07:08 | MA ---
cc: KAN ESCAMILLA MD DATE: 12/17/2016 PROCEDURE Loop recorder insertion. PREPROCEDURE DIAGNOSIS Suspected atrial fibrillation. POSTPROCEDURE DIAGNOSIS Successful loop recorder insertion. DESCRIPTION OF PROCEDURE The patient was prepped and draped in the usual sterile technique after informed consent was obtained. A Downstream LINQ loop recorder was inserted subcutaneously to the left chest. The patient tolerated the procedure well without any apparent complications. Tachybrady pause and atrial fibrillation detection was enabled. The initial R-wave was 0.53 mV. The serial number was [id number]. Kan Escamilla MD KATHLEEN/DEEPA /8:48 AM /7:03 AM
== END 2016-12-17 13:15 | disposition home or self-care (01) | DRG 260 ==
LOC: NEPE 08:51 → NEDA 10:40 → HIME 14:00
PROVIDERS: ADMIT Hospitalist; ATTEND Hospitalist
PROC: 0JH632Z Insertion of Monitoring Device into Chest Subcutaneous Tissue and Fascia, Percutaneous Approach (ICD-10-PCS; principal; 2016-12-17 08:45)
DX: I48.0 Paroxysmal atrial fibrillation (principal); E10.10 Type 1 diabetes mellitus with ketoacidosis without coma; N17.9 Acute kidney failure, unspecified; E87.0 Hyperosmolality and hypernatremia; I10 Essential (primary) hypertension; E86.0 Dehydration; E87.6 Hypokalemia; H91.90 Unspecified hearing loss, unspecified ear; K21.9 Gastro-esophageal reflux disease without esophagitis; R74.8 Abnormal levels of other serum enzymes; Z79.4 Long term (current) use of insulin; Z96.41 Presence of insulin pump (external) (internal)
CPT/HCPCS: 33282; 71010; 76937; 78452; 80048; 80053; 80069; 81001; 82010; 82550; 82552; 82805; 82948; 83036; 83735; 84100; 84155; 84484; 85007; 85025; 85027; 85610; 85730; 87641; 87804; 93005; 93017; 93306; 96361; 96374; A9502; C1764; C9113; J0610; J0690; J1644; J1815; J1817; J2250; J2405; J2785; J3010; J7030; J7042; J7050